=== PATIENT | female | born 1990 | race Caucasian/White ===

== ENCOUNTER 2018-02-26 16:38 | Emergency (ER) | payer SELFPAY ==
[~2018-02-26] VITALS: Ht 157.5 cm; Wt 63.5 kg
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
--- NOTE | 2018-02-26 16:40 | NUR ---
EKG done upon arrival to ED. Seizure pads placed on bed rails.
--- NOTE | 2018-02-26 16:55 | NUR ---
Dr. Salgado at bedside to evaluate pt.
[2018-02-26 17:17] LABS: BASOPHILS # (AUTO) 0.02 x10^3/uL (0-0.1); BASOPHILS % (AUTO) 0 % (0-1); EOSINOPHILS # (AUTO) 0.02 x10^3/uL (0-0.4); EOSINOPHILS % (AUTO) 0 % (1-7); LYMPHOCYTES # (AUTO) 1.33 x10^3/uL (1-3.4); LYMPHOCYTES % (AUTO) 10 % (22-44); MD NO; MEAN CORPUSCULAR HEMOGLOBIN 28.5 pg (27.0-34.8); MEAN CORPUSCULAR HGB CONC 33.6 g/dL (32.4-35.8); MEAN CORPUSCULAR VOLUME 84.8 fL (80-100); MEAN PLATELET VOLUME 9.2 fL (7.4-10.4); MONOCYTES # (AUTO) 0.53 x10^3/uL (0.2-0.8); MONOCYTES % (AUTO) 4 % (2-9); NEUTROPHILS % (AUTO) 86 % (42-75); PLATELET COUNT 250 x10^3/uL (130-400); RED BLOOD COUNT 4.67 x10^6/uL (3.82-5.3); RED CELL DISTRIBUTION WIDTH 13.9 % (9.6-15.2)
[2018-02-26] MEDS ORDERED: IBUPROFEN 200 MG TABLET PO ONE (18:00)
[2018-02-26] MEDS ORDERED: IBUPROFEN 200 MG TABLET ONE (18:03)
--- NOTE | 2018-02-26 18:30 | NUR ---
DR. DE DIOS AT BEDSIDE TO UPDATE PT ON ED FINDINGS, NEUROLOGIST RECOMMENDATIONS, AND DISCUSS POC.
[2018-02-26] MEDS ORDERED: LEVETIRACETAM 500 MG TABLET PO ONE (19:00)
[2018-02-26] MEDS ORDERED: LEVETIRACETAM 500 MG TABLET ONE (19:12)
[2018-02-26 19:21] VITALS: BP 103/61
== END 2018-02-26 19:38 | disposition home or self-care (01) ==
LOC: ED 17:14
DX: R56.9 Unspecified convulsions (principal)
CPT/HCPCS: 36415; 85025; 93005; 99284